=== PATIENT | male | born 1950 | race Hispanic/Latino ===

== ENCOUNTER 2018-08-02 14:27 | Emergency (ER) | payer OTHER ==
[2018-08-02 14:42] VITALS: TEMP 97.6
[2018-08-02] MEDS ORDERED: Bacitracin OINT 15GM TOP STA (15:03)
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
[2018-08-02 15:34] LABS: BASO # 0.1 K/uL (0.0-0.2); BASO % 0.6 % (0.0-2.0); EOS % 0.5 % (0.0-4.0); HEMOGLOBIN 13.5 g/dL (12.0-18.0); LYMPH # 0.8 K/uL (1.0-4.3); LYMPH % 8.9 % (20.0-40.0); MEAN CELL VOLUME 97.5 fl (80.0-94.0); MEAN CORPUSCULAR HEMOGLOBIN 33.6 pg (27.0-31.0); MEAN CORPUSCULAR HGB CONC 34.5 g/dL (33.0-37.0); MEAN PLATELET VOLUME 8.8 fl (7.2-11.7); MONO # 0.4 K/uL (0.0-0.8); MONO % 4.6 % (0.0-10.0); NEUT # 7.6 K/uL (1.8-7.0); NEUT % 85.4 % (50.0-75.0); NRBC % 0.1 % (0.0-0.0); PLATELET COUNT 239 K/uL (130-400); RBC 4.01 Mil/uL (4.40-5.90); RED CELL DISTRIBUTION WIDTH 13.7 % (11.5-14.5); WHITE BLOOD COUNT 8.9 K/uL (4.8-10.8)
[2018-08-02] MEDS ORDERED: Lidocaine 5% Patch TD ONE (15:39)
[2018-08-02] MEDS: Lidocaine 5% Patch TD STA ×2 (15:39→16:28)
[2018-08-02] MEDS ORDERED: Bacitracin 500 Units/gm Oint Foilpak UD ONE (15:39)
[2018-08-02 15:41] LABS: ALB/GLOB RATIO 1.6 (1.0-2.1); ALBUMIN 4.3 g/dL (3.5-5.0); ALT/SGPT 43 U/L (21-72); AST/SGOT 42 U/L (17-59); BLOOD UREA NITROGEN 25 mg/dl (9-20); CALCIUM 9.4 mg/dL (8.4-10.2); GFR NON-AFRICAN AMERICAN > 60
[2018-08-02] MEDS ORDERED: Iohexol 300 100 ML IJ ONE (15:46)
[2018-08-02] MEDS ORDERED: Sodium Chloride 0.9% 50 ML IV ONE (15:46)
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
[2018-08-02 16:44] LABS: URINE BILIRUBIN NEGATIVE (NEGATIVE); URINE BLOOD NEGATIVE (NEGATIVE); URINE CLARITY SLIGHTY-CLOUDY (Clear); URINE COLOR YELLOW (YELLOW); URINE GLUCOSE (UA) NEG (NEGATIVE); URINE HYALINE CAST 0-2 /hpf (0-2); URINE LEUKOCYTE ESTERASE NEG Leu/uL (Negative); URINE PROTEIN 30 mg/dL (NEGATIVE); URINE UROBILINOGEN 0.2-1.0 mg/dL (0.2-1.0)
[2018-08-02 17:13] LABS: INR 1.3; PROTHROMBIN TIME 14.7 Seconds (9.8-13.1)
[2018-08-02 17:16] LABS: PARTIAL THROMBOPLASTIN TIME 24.8 Seconds (25.6-37.1)
[2018-08-02 17:21] LABS: BANDS 2 % (0-2); LARGE PLATELETS PRESENT; LYMPHOCYTE 9 % (20-50); MONOCYTE 4 % (0-10); NEUTROPHIL 85 % (42-75); PLATELET ESTIMATE NORMAL (NORMAL); TOTAL CELLS COUNTED 100
[2018-08-02] MEDS ORDERED: Sodium Chloride 0.9% 1,000 ML IV STA (18:09)
[2018-08-02 18:31] VITALS: BP 139/86; PULSE 76; RESP 16
[2018-08-02 19:37] VITALS: O2SAT 96
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
--- NOTE | 2018-08-03 09:42 | CARD ---
APPROVED REPORT Date of service: 08/02/2018 EKG Measurement Heart [id number] <Conclusion> Atrial fibrillation Abnormal Electrocardiogram
== END 2018-08-02 18:25 | disposition home or self-care (01) ==
LOC: H.ER 14:27
DX: S22.42XA Multiple fractures of ribs, left side, initial encounter for closed fracture (principal); S40.812A Abrasion of left upper arm, initial encounter; M25.512 Pain in left shoulder; J90 Pleural effusion, not elsewhere classified; Y93.55 Activity, bike riding; Y92.410 Unspecified street and highway as the place of occurrence of the external cause; T79.7XXA Traumatic subcutaneous emphysema, initial encounter; E78.00 Pure hypercholesterolemia, unspecified; I10 Essential (primary) hypertension; Z79.01 Long term (current) use of anticoagulants; Z79.82 Long term (current) use of aspirin
CPT/HCPCS: 71046; 71260; 73030; 80053; 81003; 85025; 85610; 85730; 93005; 99284; Q9967